=== PATIENT | male | born 1955 | race Two or more races ===

== ENCOUNTER → 2018-10-08 07:18 | Emergency (ER) | payer MEDICAID, OTHER ==
[~2018-10-08] VITALS: Ht 172.7 cm; Wt 68.0 kg
[~2018-10-08 07:18] MED LIST: ACETAMINOPHEN 325 MG TAB PO ONE; MORPHINE SULFATE 4 MG/ML SYR/VIAL IV ONE; ONDANSETRON HCL 4 MG/2 ML VIAL IV ONE; SODIUM CHLORIDE 0.9% 1,000 ML IV ONE; cefTRIAXone 1GM/50ML D5W 50 ML IV ONE; metroNIDAZOLE 500 MG TAB PO ONE
[2018-10-08 08:02] LABS: Basophils # (auto) 0 uL; Basophils % (auto) 0.1 % (0.0-2.0); Eosinophils # (auto) 0 uL; Hematocrit 39.4 % (41.0-53.0); Lymphocytes # (auto) 1.4 uL; Mean Corpuscular Hemoglobin 28.4 pg (28.0-32.0); Mean Corpuscular Hgb Conc. 32.9 g/dL (32.0-36.0); Mean Corpuscular Volume 86.3 fL (80.0-100.0); Monocytes # (auto) 0.8 uL; Monocytes % (auto) 5.6 % (0.0-12.0); Neutrophils # (auto) 12.9 uL; Neutrophils % (auto) 85.3 % (37.0-80.0); Platelet Count (auto) 196 10^3/uL (140-450); Red Blood Cells 4.57 10^6/uL (4.5-5.90); Red Cell Distribution Width 14.3 % (11.8-14.3); White Blood Cell 15.1 10^3/uL (4.4-10.8)
[2018-10-08 08:09] LABS: Albumin 3.7 g/dL (3.4-5.0); Anion Gap 9 (5-15); Aspartate Aminotransferase 16 U/L (15-37); BUN/Creatinine Ratio 16.3; Blood Urea Nitrogen 16 mg/dL (7-18); Calcium 7.8 mg/dL (8.5-10.1); Carbon Dioxide 23 mmol/L (21-32); Chloride 108 mmol/L (98-107); GFR African American 100 mL/min; GFR Non-African American 83 mL/min; Glucose 127 mg/dL (74-106); Potassium 3.6 mmol/L (3.5-5.1); Sodium 140 mmol/L (136-145)
[2018-10-08 08:13] LABS: Alanine Aminotransferase 21 U/L (16-61); Alkaline Phosphatase 52 U/L (45-117); Bilirubin, Total 1.3 mg/dL (0.2-1.0); Total Protein 7.6 g/dL (6.4-8.2)
[2018-10-08 11:43] VITALS: BP 127/87
== END | disposition home or self-care (01) ==
LOC: EDUNIT# 07:07 → EDBD 07:18 → ER 07:18
DX: N39.0 Urinary tract infection, site not specified (principal); D72.829 Elevated white blood cell count, unspecified; R59.1 Generalized enlarged lymph nodes
CPT/HCPCS: 36415; 71046; 74176; 80053; 83605; 84484; 85025; 87040; 93005; 96365; 96375; 99284; J0696; J2270; J2405; J7030

== ENCOUNTER 2021-02-12 23:56 | Emergency (ER) | payer MEDICAID ==
[~2021-02-12] VITALS: Ht 177.8 cm; Wt 102.1 kg
[2021-02-13 01:14] VITALS: BP 153/86
== END 2021-02-13 01:04 | disposition left against medical advice (07) ==
LOC: EDBD 23:56 → ER 23:56 → EDUNIT# 23:56 → ER 02-13 01:04
DX: R07.89 Other chest pain (principal)
CPT/HCPCS: 93005

== ENCOUNTER 2022-07-13 22:02 | Inpatient (IN) | payer MEDICARE, MEDICAID ==
[~2022-07-13] VITALS: Ht 175.3 cm; Wt 66.9 kg
[2022-07-13 22:37] LABS: Basophils # (auto) 0 10 ^3/uL (0-0.2); Basophils % (auto) 0.4 % (0.0-2.0); Eosinophils # (auto) 0.1 10 ^3/uL (0-0.8); Eosinophils % (auto) 1.2 % (0.0-7.0); Hematocrit 42.1 % (41.0-53.0); Hemoglobin 14.7 g/dL (13.5-17.5); Lymphocytes # (auto) 1.5 10 ^3/uL (0.4-5.4); Lymphocytes % (auto) 12.5 % (10.0-50.0); Mean Corpuscular Hemoglobin 28.4 pg (28.0-32.0); Mean Corpuscular Hgb Conc. 34.9 g/dL (32.0-36.0); Mean Corpuscular Volume 81.5 fL (80.0-100.0); Monocytes # (auto) 0.8 10 ^3/uL (0-1.3); Monocytes % (auto) 6.7 % (0.0-12.0); Neutrophils # (auto) 9.4 10 ^3/uL (1.6-8.6); Neutrophils % (auto) 79.2 % (37.0-80.0); Nucleated Red Blood Cells % 0.1 %; Red Blood Cells 5.16 10^6/uL (4.5-5.90); Red Cell Distribution Width 14.5 % (11.8-14.3); White Blood Cell 11.8 10^3/uL (4.4-10.8)
[2022-07-13 22:56] LABS: Albumin 3.6 g/dL (3.4-5.0); BUN/Creatinine Ratio 11.5 (10.0-20.0); Calcium 8.4 mg/dL (8.5-10.1); Magnesium 2.1 mg/dL (1.6-2.6); Potassium 3.9 mmol/L (3.5-5.1)
[2022-07-13 22:58] LABS: Bilirubin, Total 0.7 mg/dL (0.2-1.0); Total Protein 7.7 g/dL (6.4-8.2)
[2022-07-14] MEDS ORDERED: IPRATROPIUM BROM 0.5 MG/2.5ML INH SOL ONE (01:43)
[2022-07-14] MEDS ORDERED: ALBUTEROL SULF 2.5 MG/0.5ML(0.5%) NEB SOLN ONE (01:43)
[2022-07-14] MEDS ORDERED: IPRATROPIUM BROM 0.5 MG/2.5ML INH SOL NEB ONE (01:45)
[2022-07-14] MEDS ORDERED: ALBUTEROL SULF 2.5 MG/0.5ML(0.5%) NEB SOLN NEB ONE (01:45)
[2022-07-14] MEDS ORDERED: ACETAMINOPHEN 325 MG TAB PO PRN (02:45)
[2022-07-14] MEDS ORDERED: TEMAZEPAM 15 MG CAP PO PRN (02:45)
[2022-07-14] MEDS ORDERED: ONDANSETRON HCL 4 MG/2 ML VIAL IV PRN (02:45)
[2022-07-14] MEDS ORDERED: ALBUTEROL SULF 2.5 MG/0.5ML(0.5%) NEB SOLN NEB PRN (02:45)
[2022-07-14] MEDS ORDERED: NITROGLYCERIN 0.4 MG SL TAB SL PRN (02:45)
[2022-07-14] MEDS ORDERED: FUROSEMIDE 20 MG/2 ML VIAL IV ONE (02:45)
[2022-07-14] MEDS ORDERED: MORPHINE SULFATE INJ 2 MG/ml SYRG IV PRN (02:45)
[2022-07-14] MEDS: FUROSEMIDE 20 MG/2 ML VIAL IV SCH ×2 (07:09→18:18)
[2022-07-14 07:20] VITALS: BP 102/61
[2022-07-14] MEDS ORDERED: PANTOPRAZOLE 40 MG TAB PO SCH (10:00)
[2022-07-14] MEDS: GABAPENTIN 300 MG CAP PO SCH ×2 (10:33→22:26)
[2022-07-14] MEDS: ENOXAPARIN SOD 40 MG/0.4 ML SYRINGE SC SCH (10:33)
[2022-07-14 10:43] LABS: Cholesterol 192 mg/dL (< 200); HDL Cholesterol 35 mg/dL (40-59); LDL Cholesterol 143 mg/dL (< 100); Triglycerides 175 mg/dL (< 150)
[2022-07-14] MEDS: METOPROLOL SUCCINATE XL 50 MG TAB PO SCH (10:43)
[2022-07-14] MEDS ORDERED: HYDROcodone-ACET 7.5/325MG TAB PO PRN (13:00)
[2022-07-14] MEDS ORDERED: ATORVASTATIN 20 MG TAB PO SCH (22:00)
[2022-07-15] VITALS (7 sets, daily range): BP systolic 105–153; BP diastolic 71–93
[2022-07-15] MEDS ORDERED: TRAM50TA2 PO (04:51)
[2022-07-15] MEDS ORDERED: ASPI1TAB20 PO (04:51)
[2022-07-15] MEDS ORDERED: SIMV-8 PO (04:51)
[2022-07-15] MEDS ORDERED: MET50T GT (04:51)
[2022-07-15] MEDS ORDERED: GABA300C10 PO (04:51)
[2022-07-15] MEDS: FUROSEMIDE 20 MG/2 ML VIAL IV SCH ×2 (05:56→17:47)
[2022-07-15 06:29] LABS: Basophils # (auto) 0 10 ^3/uL (0-0.2); Basophils % (auto) 0.3 % (0.0-2.0); Eosinophils # (auto) 0.3 10 ^3/uL (0-0.8); Eosinophils % (auto) 2.8 % (0.0-7.0); Hematocrit 41.8 % (41.0-53.0); Hemoglobin 14.5 g/dL (13.5-17.5); Lymphocytes # (auto) 2.6 10 ^3/uL (0.4-5.4); Lymphocytes % (auto) 28.6 % (10.0-50.0); Mean Corpuscular Hgb Conc. 34.6 g/dL (32.0-36.0); Mean Corpuscular Volume 83.9 fL (80.0-100.0); Monocytes # (auto) 1.1 10 ^3/uL (0-1.3); Monocytes % (auto) 11.6 % (0.0-12.0); Neutrophils # (auto) 5.2 10 ^3/uL (1.6-8.6); Neutrophils % (auto) 56.7 % (37.0-80.0); Nucleated Red Blood Cells % 0.4 %; Red Blood Cells 4.98 10^6/uL (4.5-5.90); Red Cell Distribution Width 14.7 % (11.8-14.3); White Blood Cell 9.2 10^3/uL (4.4-10.8)
[2022-07-15 06:49] LABS: Potassium 3.7 mmol/L (3.5-5.1)
[2022-07-15 07:02] LABS: Albumin 3.6 g/dL (3.4-5.0); BUN/Creatinine Ratio 26.4 (10.0-20.0); Calcium 9.1 mg/dL (8.5-10.1)
[2022-07-15 07:14] LABS: Bilirubin, Total 0.8 mg/dL (0.2-1.0); Total Protein 8.2 g/dL (6.4-8.2)
[2022-07-15] MEDS: METOPROLOL SUCCINATE XL 50 MG TAB PO SCH (10:23)
[2022-07-15] MEDS: GABAPENTIN 300 MG CAP PO SCH ×2 (10:23→21:44)
[2022-07-15] MEDS: ENOXAPARIN SOD 40 MG/0.4 ML SYRINGE SC SCH (10:23)
[2022-07-15] MEDS: ATORVASTATIN 20 MG TAB PO SCH ×2 (10:30→21:45)
[2022-07-15] MEDS ORDERED: LACTULOSE 20Gm/30ML SOLN PO ONE (18:00)
[2022-07-16 05:00] VITALS: BP 121/68
[2022-07-16] MEDS: FUROSEMIDE 20 MG/2 ML VIAL IV SCH ×2 (05:53→18:30)
[2022-07-16 08:15] VITALS: BP 95/62
[2022-07-16] MEDS: GABAPENTIN 300 MG CAP PO SCH ×2 (10:23→21:57)
[2022-07-16] MEDS: ENOXAPARIN SOD 40 MG/0.4 ML SYRINGE SC SCH (10:23)
[2022-07-16] MEDS: METOPROLOL SUCCINATE XL 50 MG TAB PO SCH (10:28)
[2022-07-16 12:15] VITALS: BP 121/86
[2022-07-16 16:25] VITALS: BP 114/80
[2022-07-16] MEDS: ATORVASTATIN 20 MG TAB PO SCH (21:57)
[2022-07-16 22:00] VITALS: BP 116/84
[2022-07-17 03:42] VITALS: BP 116/84
[2022-07-17 05:00] VITALS: BP 123/80
[2022-07-17] MEDS: FUROSEMIDE 20 MG/2 ML VIAL IV SCH (05:52)
[2022-07-17 08:20] VITALS: BP 121/89
[2022-07-17 09:57] VITALS: BP 113/78
== END 2022-07-17 11:00 | disposition home or self-care (01) | DRG 197 ==
LOC: EDBD 22:02 → ER 22:02 → TELE 07-14 02:31 → TELE-WESTW 07-15 02:32
PROVIDERS: ADMIT Nurse Practitioner; ATTEND Family Medicine
DX: I71.21 Aneurysm of the ascending aorta, without rupture (principal); I50.31 Acute diastolic (congestive) heart failure; K44.9 Diaphragmatic hernia without obstruction or gangrene; I11.0 Hypertensive heart disease with heart failure; E66.9 Obesity, unspecified; Z20.822 Contact with and (suspected) exposure to COVID-19; E78.5 Hyperlipidemia, unspecified; I25.2 Old myocardial infarction; Z88.6 Allergy status to analgesic agent; Z87.442 Personal history of urinary calculi; Z82.49 Family history of ischemic heart disease and other diseases of the circulatory system; Z68.21 Body mass index [BMI] 21.0-21.9, adult; R07.89 Other chest pain
CPT/HCPCS: 36415; 71250; 80053; 80061; 83036; 83735; 83880; 84443; 84484; 85025; 85379; 87426; 87804; 93005; 93306; 94640; G0378

== ENCOUNTER 2023-09-03 09:12 | Emergency (ER) | payer MEDICARE, MEDICAID ==
[~2023-09-03] VITALS: Ht 177.8 cm; Wt 91.0 kg
[~2023-09-03 09:12] MED LIST changes: -ACETAMINOPHEN 325 MG TAB PO ONE; +ASPI1TAB20 PO; +GABA-1250 PO; +MET50T GT; -MORPHINE SULFATE 4 MG/ML SYR/VIAL IV ONE; -ONDANSETRON HCL 4 MG/2 ML VIAL IV ONE; +SIMV20TA20 PO; -SODIUM CHLORIDE 0.9% 1,000 ML IV ONE; +TRAM50TA2 PO; -cefTRIAXone 1GM/50ML D5W 50 ML IV ONE; -metroNIDAZOLE 500 MG TAB PO ONE
[2023-09-03 09:16] VITALS: TEMP 97.8
[2023-09-03 09:20] VITALS: BP 173/99; PULSE 66
[2023-09-03 09:24] VITALS: RESP 18; O2SAT 94
== END 2023-09-03 10:21 | disposition home or self-care (01) ==
LOC: ER 09:12 → EDBD 09:12 → ER 10:21
DX: R07.81 Pleurodynia (principal); M79.18 Myalgia, other site; E78.5 Hyperlipidemia, unspecified; I10 Essential (primary) hypertension; Z87.442 Personal history of urinary calculi; Z88.6 Allergy status to analgesic agent; W18.09XA Striking against other object with subsequent fall, initial encounter; Y93.89 Activity, other specified; Y92.89 Other specified places as the place of occurrence of the external cause; Y99.8 Other external cause status
CPT/HCPCS: 71101

== ENCOUNTER 2023-10-22 23:27 | Inpatient (IN) | payer MEDICARE, MEDICAID ==
[~2023-10-22] VITALS: Ht 172.7 cm; Wt 75.0 kg
[~2023-10-22 23:27] MED LIST changes: +LIDO1PAD55 EX; -MET50T GT; +MET50T PO
[2023-10-22 23:40] VITALS: RESP 18; O2SAT 94
[2023-10-23] VITALS (7 sets, daily range): BP systolic 137–142; BP diastolic 83–100; PULSE 87–102; RESP 17–19; TEMP 98.6–101.5; O2SAT 92–97
[2023-10-23] MEDS: ALBUTEROL SULF 2.5 MG/0.5ML(0.5%) NEB SOLN NEB ONE (00:03)
[2023-10-23] MEDS: SODIUM CHLORIDE 0.9% 1,000 ML IV ONE (00:03)
[2023-10-23] MEDS: ACETAMINOPHEN 325 MG TAB PO ONE (00:04)
[2023-10-23 00:16] LABS: Basophils # (auto) 0 10 ^3/uL (0-0.2); Basophils % (auto) 0.2 % (0.0-2.0); Eosinophils # (auto) 0 10 ^3/uL (0-0.8); Eosinophils % (auto) 0.4 % (0.0-7.0); Hematocrit 39.4 % (41.0-53.0); Hemoglobin 13.6 g/dL (13.5-17.5); Lymphocytes # (auto) 1.7 10 ^3/uL (0.4-5.4); Lymphocytes % (auto) 17.8 % (10.0-50.0); Mean Corpuscular Hemoglobin 29.7 pg (28.0-32.0); Mean Corpuscular Hgb Conc. 34.5 g/dL (32.0-36.0); Monocytes # (auto) 0.8 10 ^3/uL (0-1.3); Monocytes % (auto) 8.4 % (0.0-12.0); Neutrophils # (auto) 7.1 10 ^3/uL (1.6-8.6); Neutrophils % (auto) 73.2 % (37.0-80.0); Nucleated Red Blood Cells % 0.1 %; Red Blood Cells 4.58 10^6/uL (4.5-5.90); Red Cell Distribution Width 14.5 % (11.8-14.3); White Blood Cell 9.7 10^3/uL (4.4-10.8)
[2023-10-23 00:20] LABS: Chloride 106 mmol/L (98-107); Potassium 3.6 mmol/L (3.5-5.1); Sodium 137 mmol/L (136-145)
[2023-10-23 00:21] LABS: Anion Gap 5 (5-15); Calcium 8.9 mg/dL (8.7-10.4); Carbon Dioxide 26 mmol/L (20-30)
[2023-10-23 00:26] LABS: BUN/Creatinine Ratio 14.3 (10.0-20.0); Blood Urea Nitrogen 12 mg/dL (9-23); Glucose 131 mg/dL (74-106)
[2023-10-23] MEDS: CEFEPIME 2GM/50ML NS 50 ML IV ONE (04:00)
[2023-10-23] MEDS: VANCOMYCIN 1GM/200ML 200 ML IV ONE (04:02)
[2023-10-23] MEDS: AZITHROMYCIN 250 MG TAB PO ONE (04:02)
[2023-10-23] MEDS: ACETAMINOPHEN 500 MG TAB PO ONE (08:51)
[2023-10-23] MEDS ORDERED: DOCUSATE SOD 100 MG CAP PO PRN (10:30)
[2023-10-23] MEDS ORDERED: AZITHROMYCIN 500MG/ 250ML 250 ML IV ONE (10:30)
[2023-10-23] MEDS ORDERED: ONDANSETRON HCL 4 MG/2 ML VIAL IV PRN (10:30)
[2023-10-23] MEDS ORDERED: NITROGLYCERIN 0.4 MG SL TAB SL PRN (10:30)
[2023-10-23] MEDS ORDERED: MORPHINE SULFATE INJ 2 MG/ml SYRG IV PRN ×2 (10:30)
[2023-10-23] MEDS: cefTRIAXone 1GM/50ML D5W 50 ML IV ONE (11:10)
[2023-10-23] MEDS: SODIUM CHLORIDE 0.9% 1,000 ML IV SCH (11:10)
[2023-10-23 11:31] LABS: INR 1.14 (0.9-1.15)
[2023-10-23 12:11] LABS: COVID19 ANTIGEN SOFIA FIA POSITIVE (NEGATIVE)
[2023-10-23] MEDS ORDERED: REMDESIVIR PER PHARMACY 0 ML IV SCH (12:30)
[2023-10-23] MEDS ORDERED: ALBUTEROL SULF HFA 90MCG INH 200DOSE IN PRN (12:30)
[2023-10-23 13:17] LABS: Thyroid Stimulating Hormone 0.76 uIU/mL (0.55-4.78)
[2023-10-23 13:22] LABS: CRP High Sensitivity 9.52 mg/dL (<1.0)
[2023-10-23 14:26] LABS: Albumin 4.3 g/dL (3.2-4.8); Alkaline Phosphatase 43 U/L (46-116); Anion Gap 14 (5-15); Aspartate Aminotransferase 9 U/L (13-40); BUN/Creatinine Ratio 12.7 (10.0-20.0); Blood Urea Nitrogen 9 mg/dL (9-23); Carbon Dioxide 17 mmol/L (20-30); Chloride 107 mmol/L (98-107); Glucose 97 mg/dL (74-106); Potassium 3.7 mmol/L (3.5-5.1); Sodium 138 mmol/L (136-145); Total Protein 7.1 g/dL (5.7-8.2)
[2023-10-23 15:08] LABS: Alanine Aminotransferase < 9 U/L (7-40)
[2023-10-23 16:00] LABS: Urine Bacteria None Seen /hpf (None Seen)
[2023-10-23 16:29] LABS: Urine Blood 2+ /uL (Negative); Urine Clarity Clear (Clear); Urine Color Yellow (Yellow); Urine Mucus FEW (None Seen); Urine Protein, UAD TRACE (Negative); Urine Specific Gravity 1.022 (1.001-1.035); Urine Urobilinogen 8 mg/dL (Negative); Urine WBC <1 /hpf (0 - 3); Urine pH 6.5 (5.0-9.0)
[2023-10-23] MEDS ORDERED: [UNRECOGNIZED DRUG - CODE] PO (16:43)
[2023-10-23] MEDS ORDERED: OMEP20TA PO (16:44)
[2023-10-23] MEDS ORDERED: BUDE1AER6 INH (16:44)
[2023-10-23] MEDS: REMDESIVIR 200 MG in NS 210ml LOADING DOSE ADULT IV ONE (17:33)
[2023-10-23] MEDS: METOPROLOL TARTRATE 50 MG TAB PO SCH (21:39)
[2023-10-23] MEDS: GABAPENTIN 300 MG CAP PO SCH (21:40)
[2023-10-23] MEDS: ACETAMINOPHEN 500 MG TAB PO PRN (21:40)
[2023-10-23] MEDS: ENOXAPARIN SOD 80 MG/0.8ML SYRINGE SC SCH (21:40)
[2023-10-24] VITALS (9 sets, daily range): BP systolic 119–170; BP diastolic 76–102; PULSE 67–98; RESP 16–19; TEMP 97.4–98.4; O2SAT 94–98
[2023-10-24 07:19] LABS: Basophils # (auto) 0 10 ^3/uL (0-0.2); Basophils % (auto) 0.3 % (0.0-2.0); Eosinophils # (auto) 0.1 10 ^3/uL (0-0.8); Eosinophils % (auto) 1.4 % (0.0-7.0); Hematocrit 40.3 % (41.0-53.0); Hemoglobin 13.8 g/dL (13.5-17.5); Lymphocytes # (auto) 1.5 10 ^3/uL (0.4-5.4); Lymphocytes % (auto) 21.2 % (10.0-50.0); Mean Corpuscular Hgb Conc. 34.2 g/dL (32.0-36.0); Mean Corpuscular Volume 87.7 fL (80.0-100.0); Monocytes # (auto) 0.9 10 ^3/uL (0-1.3); Monocytes % (auto) 13.2 % (0.0-12.0); Neutrophils # (auto) 4.5 10 ^3/uL (1.6-8.6); Neutrophils % (auto) 63.9 % (37.0-80.0); Nucleated Red Blood Cells % 0.1 %; Red Blood Cells 4.59 10^6/uL (4.5-5.90); Red Cell Distribution Width 14.3 % (11.8-14.3); White Blood Cell 7.1 10^3/uL (4.4-10.8)
[2023-10-24 07:26] LABS: Alkaline Phosphatase 43 U/L (46-116); Anion Gap 13 (5-15); Aspartate Aminotransferase 8 U/L (13-40); BUN/Creatinine Ratio 10.8 (10.0-20.0); Blood Urea Nitrogen 7 mg/dL (9-23); Calcium 9.2 mg/dL (8.7-10.4); Carbon Dioxide 17 mmol/L (20-30); Chloride 105 mmol/L (98-107); Glucose 74 mg/dL (74-106); Potassium 3.7 mmol/L (3.5-5.1); Sodium 135 mmol/L (136-145)
[2023-10-24 07:27] LABS: Alanine Aminotransferase < 9 U/L (7-40); Albumin 4.3 g/dL (3.2-4.8); Bilirubin, Total 0.9 mg/dL (0.2-1.0); Total Protein 7.5 g/dL (5.7-8.2)
[2023-10-24] MEDS: IOHEXOL 350 MG/ML 100ML IJ ONE (07:48)
[2023-10-24] MEDS ORDERED: ENOXAPARIN SOD 40 MG/0.4 ML SYRINGE SC SCH (10:00)
[2023-10-24] MEDS: ZINC SULFATE 220mg CAP or TAB PO SCH (11:57)
[2023-10-24] MEDS: ASPirin-EC 81 mg tab PO SCH (11:58)
[2023-10-24] MEDS: hydrALAZINE HCL 20 MG/ML VL IV PRN (11:59)
[2023-10-24] MEDS: DexAMETHasone SOD PHOS 10MG/1ML VIAL INJ IV SCH (11:59)
[2023-10-24] MEDS: AZITHROMYCIN 500MG/ 250ML 250 ML IV SCH (12:00)
[2023-10-24] MEDS: cefTRIAXone 1GM/50ML D5W 50 ML IV SCH (12:00)
[2023-10-24] MEDS ORDERED: PARO10TA93 PO (13:34)
[2023-10-24] MEDS ORDERED: GABA-339 PO (13:34)
[2023-10-24] MEDS ORDERED: OMEP1CAP70 PO (13:34)
[2023-10-24] MEDS: REMDESIVIR 100mg 100 MG in SODIUM CHL 0.9% 230 ML IV SCH (15:00)
[2023-10-24] MEDS: PANTOPRAZOLE 40 MG/10 ML VIAL INJ IV ONE (15:44)
[2023-10-24] MEDS: ASCORBIC ACID 500 MG TAB PO ONE (15:44)
[2023-10-24] MEDS: ERGOCALCIFEROL 50,000 UNIT(1.25MG) CAP PO SCH (15:44)
[2023-10-24] MEDS: ASCORBIC ACID 500 MG TAB PO SCH (21:17)
[2023-10-25] VITALS (10 sets, daily range): BP systolic 115–140; BP diastolic 73–82; PULSE 65–72; RESP 17–20; TEMP 97.3–98.8; O2SAT 93–98
[2023-10-25 06:41] LABS: Basophils # (auto) 0 10 ^3/uL (0-0.2); Basophils % (auto) 0.1 % (0.0-2.0); Eosinophils # (auto) 0 10 ^3/uL (0-0.8); Hemoglobin 14.2 g/dL (13.5-17.5); Lymphocytes % (auto) 21.4 % (10.0-50.0); Mean Corpuscular Hemoglobin 29.2 pg (28.0-32.0); Mean Corpuscular Hgb Conc. 33.7 g/dL (32.0-36.0); Mean Corpuscular Volume 86.6 fL (80.0-100.0); Monocytes # (auto) 0.4 10 ^3/uL (0-1.3); Monocytes % (auto) 8.2 % (0.0-12.0); Neutrophils # (auto) 3.3 10 ^3/uL (1.6-8.6); Neutrophils % (auto) 70.3 % (37.0-80.0); Nucleated Red Blood Cells % 0.3 %; Red Blood Cells 4.85 10^6/uL (4.5-5.90); Red Cell Distribution Width 14.5 % (11.8-14.3); White Blood Cell 4.7 10^3/uL (4.4-10.8)
[2023-10-25 06:44] LABS: Albumin 4.1 g/dL (3.2-4.8); Alkaline Phosphatase 43 U/L (46-116); Anion Gap 8 (5-15); BUN/Creatinine Ratio 28.6 (10.0-20.0); Blood Urea Nitrogen 20 mg/dL (9-23); Calcium 9.2 mg/dL (8.7-10.4); Carbon Dioxide 23 mmol/L (20-30); Chloride 106 mmol/L (98-107); Glucose 126 mg/dL (74-106); Potassium 3.6 mmol/L (3.5-5.1); Sodium 137 mmol/L (136-145)
[2023-10-25 06:45] LABS: Bilirubin, Total 0.6 mg/dL (0.2-1.0); Total Protein 7.2 g/dL (5.7-8.2)
[2023-10-25 06:46] LABS: Alanine Aminotransferase < 9 U/L (7-40); Aspartate Aminotransferase < 8 U/L (13-40)
[2023-10-25] MEDS: PANTOPRAZOLE 40 MG/10 ML VIAL INJ IV SCH (10:09)
[2023-10-25] MEDS: ATORVASTATIN 20 MG TAB PO SCH (10:15)
[2023-10-25] MEDS: guaiFENesin-DM 100/10mg/5ml SYR PO PRN (11:39)
[2023-10-25] MEDS: ENOXAPARIN SOD 40 MG/0.4 ML SYRINGE SC SCH (21:28)
[2023-10-26] VITALS (10 sets, daily range): BP systolic 108–142; BP diastolic 3–91; PULSE 62–70; RESP 18–19; TEMP 97.9–98.5; O2SAT 90–96
[2023-10-26 06:19] LABS: Albumin 3.9 g/dL (3.2-4.8); Alkaline Phosphatase 44 U/L (46-116); Anion Gap 8 (5-15); BUN/Creatinine Ratio 24.6 (10.0-20.0); Bilirubin, Total 0.4 mg/dL (0.2-1.0); Blood Urea Nitrogen 15 mg/dL (9-23); Carbon Dioxide 22 mmol/L (20-30); Chloride 107 mmol/L (98-107); Glucose 80 mg/dL (74-106); Potassium 3.7 mmol/L (3.5-5.1); Sodium 137 mmol/L (136-145); Total Protein 6.6 g/dL (5.7-8.2)
[2023-10-26 06:23] LABS: Alanine Aminotransferase < 9 U/L (7-40); Aspartate Aminotransferase < 8 U/L (13-40)
[2023-10-27] VITALS (9 sets, daily range): BP systolic 122–151; BP diastolic 59–89; PULSE 58–86; RESP 14–19; TEMP 36.3; O2SAT 92–98
[2023-10-27 05:39] LABS: Basophils # (auto) 0 10 ^3/uL (0-0.2); Eosinophils # (auto) 0 10 ^3/uL (0-0.8); Hematocrit 38.9 % (41.0-53.0); Hemoglobin 13.3 g/dL (13.5-17.5); Lymphocytes # (auto) 1.9 10 ^3/uL (0.4-5.4); Lymphocytes % (auto) 20.5 % (10.0-50.0); Mean Corpuscular Hemoglobin 28.9 pg (28.0-32.0); Mean Corpuscular Hgb Conc. 34.1 g/dL (32.0-36.0); Mean Corpuscular Volume 84.7 fL (80.0-100.0); Monocytes # (auto) 0.7 10 ^3/uL (0-1.3); Monocytes % (auto) 7.6 % (0.0-12.0); Neutrophils # (auto) 6.8 10 ^3/uL (1.6-8.6); Neutrophils % (auto) 71.9 % (37.0-80.0); Nucleated Red Blood Cells % 0.1 %; Red Blood Cells 4.59 10^6/uL (4.5-5.90); Red Cell Distribution Width 14.2 % (11.8-14.3); White Blood Cell 9.4 10^3/uL (4.4-10.8)
[2023-10-27 06:01] LABS: Alanine Aminotransferase 13 U/L (7-40); Alkaline Phosphatase 48 U/L (46-116); Anion Gap 10 (5-15); BUN/Creatinine Ratio 32.3 (10.0-20.0); Blood Urea Nitrogen 20 mg/dL (9-23); Carbon Dioxide 24 mmol/L (20-30); Chloride 104 mmol/L (98-107); Glucose 81 mg/dL (74-106); Potassium 3.7 mmol/L (3.5-5.1); Sodium 138 mmol/L (136-145)
[2023-10-27 06:02] LABS: Aspartate Aminotransferase 10 U/L (13-40); Bilirubin, Total 0.4 mg/dL (0.2-1.0); Total Protein 6.7 g/dL (5.7-8.2)
[2023-10-27] MEDS ORDERED: SORE THROAT SPRAY 6OZ BOTTLE MT PRN (11:00)
[2023-10-27] MEDS: SORE THROAT SPRAY 6OZ BOTTLE MT ONE (15:36)
== END 2023-10-27 18:30 | disposition home or self-care (01) | DRG 137 ==
LOC: EDBD 23:27 → ER 23:27 → OVERFLOW 10-23 10:36 → CENTRAL 10-23 16:12 → WEST WING 10-24 23:43
PROVIDERS: ADMIT Internal Medicine; ATTEND Emergency Medicine
PROC: XW033E5 Introduction of Remdesivir Anti-infective into Peripheral Vein, Percutaneous Approach, New Technology Group 5 (ICD-10-PCS; principal; 2023-10-23)
DX: U07.1 COVID-19 (principal); J96.01 Acute respiratory failure with hypoxia; J12.82 Pneumonia due to coronavirus disease 2019; I11.0 Hypertensive heart disease with heart failure; I50.32 Chronic diastolic (congestive) heart failure; J15.9 Unspecified bacterial pneumonia; M62.838 Other muscle spasm; E55.9 Vitamin D deficiency, unspecified; E78.5 Hyperlipidemia, unspecified; Z88.1 Allergy status to other antibiotic agents; Z79.899 Other long term (current) drug therapy; Z90.49 Acquired absence of other specified parts of digestive tract; Z88.6 Allergy status to analgesic agent; I25.2 Old myocardial infarction
CPT/HCPCS: 36415; 71045; 71275; 80048; 80053; 81001; 82270; 82306; 82728; 83605; 83615; 83735; 83880; 84443; 84484; 85025; 85379; 85610; 86141; 87426; 93005; 94640; 96365; 96366; 96367; 96368; G0378; J0692; J1100; J2470

== ENCOUNTER 2024-02-18 15:45 | Inpatient (IN) | payer MEDICARE, MEDICAID ==
[~2024-02-18] VITALS: Ht 175.3 cm; Wt 93.7 kg
[~2024-02-18 15:45] MED LIST changes: +BUDE1AER6 INH; -GABA-1250 PO; +GABA-339 PO; +OMEP1CAP70 PO; +PARO10TA93 PO
--- NOTE | 2024-02-18 15:51 | ECG ---
[facility] Test Date: 2024-02-18 Test Time: 15:49:58 Pat Name: YVON ESTRADA Department: ED Room: [facility] Gender: M Parking Patroller: MR DOBSONB: 1955 Requested By: EMERALD GOLD Order Number: [id number] Reading MD: Braxton Hickey Measurements Intervals [place] Rate: 57 P: -10 NE: 216 QRS: -16 QRSD: 99 T: 18 QT: 441 QTc: 430 Interpretive Statements Sinus rhythm Borderline prolonged NE interval Borderline left axis deviation Low voltage, precordial leads RSR' in V1 or V2, right VCD or RVH Minimal ST elevation, anterior leads Electronically Signed On 02-22-2024 11:14:45 PST by Braxton Hickey Please click the below link to view image of tracing.
--- NOTE | 2024-02-18 15:51 | ED.PDOC ---
History of Present Illness HPI Comments This is a 68-year-old male who comes in with chief complaint of elevated blood pressure as well as some dizziness and nausea. 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 At that time the patient's systolic was 190. The patient was now complaining of some back pain as well. The patient took the medications today for his blood pressure but does not remember what they are. He is still complaining of some dizziness as well as nausea and states that his back pain has worsened. The paramedics took his blood pressure and is systolic at that time was 176. Chief Complaint: High Blood Pressure Time Seen by MD: 15:46 Primary Care Provider: PT DOESNT KNOW Reviewed Notes: Nurses Notes, Fireworks Inspector Notes, Medications, Allergies (Allergies to ibuprofen) Allergies: Coded Allergies: Ibuprofen (Verified Allergy, Mild, 03/28/10) Home Meds Reported Medications Lidocaine (Lidocaine) 5 % Pad, 1 PATCH EX DAILY Apply 1 patch every rafael 12 hours on 12 hours off. 10/24/23 Omeprazole (Omeprazole Dr) 20 Mg Cap, 2 CAP PO DAILY 10/24/23 Paroxetine Hydrochloride (Paroxetine Hydrochloride) 10 Mg Tab, 1 TAB PO DAILY 10/24/23 Gabapentin (Gabapentin) 600 Mg Tab, 2 TAB PO BID Take 2 tablets by mouth every morning, and 2 tablets by mouth every night at bedtime. 10/24/23 Virvxrvqwf-Adzcjwpdyeltsb-Amwc (Breztri Aerosphere 160-9-4.8 Mcg/Act) 1 Aer Aer, 2 PUFF INH BID 10/23/23 Aspirin (Aspir-81) 81 Mg Tab, 1 TAB PO DAILY 07/15/22 Simvastatin (Simvastatin) 20 Mg Tab, 1 TAB PO DAILY 07/15/22 Metoprolol Tartrate (LOPRESSOR TABLET) 50 Mg Tb, 1 TAB PO BID 07/15/22 Tramadol Hcl (Tramadol Hcl) 50 Mg Tab, 1 TAB PO QID PRN 07/15/22 Information Source: Patient, Emergency Med Personnel Mode of Arrival: EMS Severity: Moderate Timing: Minutes Duration: Since onset Prehospital treatment: Accucheck (117), Blueprinter, IVF Location: Upper back pain Associated signs and symptoms Associated dizziness and nausea Past Medical History PAST MEDICAL HISTORY: CHF, CVA, High Lipids, HTN, Kidney Stones, UT, UTI'S Surgical History: Denies all surgeries Family History Family History: Family hx of Cancer Social History Smoker: Non-Smoker Alcohol: Occasionally Drugs: Denies Drug Use Lives In: Home Constitutional: denies: chills, diaphoresis, fatigue, fever, malaise, sweats, weakness, others EENTM: denies: blurred vision, double vision, ear bleeding, ear discharge, ear drainage, ear pain, ear ringing, eye pain, eye redness, hearing loss, mouth pain, mouth swelling, nasal discharge, nose bleeding, nose congestion, nose pain, photophobia, tearing, throat pain, throat swelling, voice changes, others Respiratory: denies: cough, hemoptysis, orthopnea, SOB at rest, shortness of breath, SOB with excertion, stridor, wheezing, others Cardiovascular: denies: chest pain, dizzy spells, diaphoresis, Dyspnea on exertion, edema, irregular heart beat, left arm pain, lightheadedness, palpitations, PND, syncope, others Gastrointestinal: reports: nausea; denies: abdomen distended, abdominal pain, blood streaked bowels, constipated, diarrhea, dysphagia, difficulty swallowing, hematemesis, melena, poor appetite, poor fluid intake, rectal bleeding, rectal pain, vomiting, others Genitourinary: denies: burning, dysuria, flank pain, frequency, hematuria, incontinence, penile discharge, penile sore, pain, testicle pain, testicle swelling, urgency, others Neurological: reports: dizziness; denies: fainting, headache, left sided numbness, left sided weakness, numbness, paresthesia, pre-existing deficit, right sided numbness, right sided weakness, seizure, speech problems, tingling, tremors, weakness, others Musculoskeletal: reports: back pain; denies: gout, joint pain, joint swelling, muscle pain, muscle stiffness, neck pain, others Integumetry: denies: bruises, change in color, change in hair/nails, dryness, laceration, lesions, lumps, rash, wounds, others Allergic/Immunocompromised: denies: Difficulty Healing, Frequent Infections, Hives, Itching, others Hematologic/Lymphatic: denies: anemia, blood clots, easy bleeding, easy bruising, swollen glands, others Endocrine: denies: excessive hunger, excessive sweating, excessive thirst, excessive urination, flushing, intolerance to cold, intolerance to heat, unexplained weight gain, unexplained weight loss, others Psychiatric: denies: anxiety, bipolar disorder, depression, hopeless, panic disorder, schizophrenia, sleepless, suicidal, others Physical Exam General Appearance: Moderate Distress HEENT: Normal ENT Inspection, Pharynx Normal, TMs Normal Neck: Full Range of Motion, Non-Tender, Normal, Normal Inspection Respiratory: Chest Non-Tender, Lungs Clear, No Accessory Muscle Use, No Respiratory Distress, Normal Breath Sounds Cardiovascular: No Edema, No JVD, No Murmur, No Gallop, Normal Peripheral Pulses, Regular Rate/Rhythm Breast Exam: Deferred Gastrointestinal: No Organomegaly, Non Tender, No Pulsatile Mass, Normal Bowel Sounds, Soft Genitalia: Deferred Pelvic: Deferred Rectal: Deferred Extremities: No calf tenderness, Normal capillary refill, No pedal edema Musculoskeletal : Apperance: Normal Neurologic: Alert, clinic receptionist II-XII nml as Tested, Motor Weakness, Normal Affect, Normal Mood, No Sensory Deficits Cerebellar Function: Normal Reflexes: Normal Skin: Dry, Normal Color, Warm Lymphatic: No Adenopathy Was a procedure done? Was a procedure done?: No EKG EKG : Pulse Rate (adult): 57 [place]: LAD Cardiac Rhythm: SB ST: Nonsp Differential Dx Considerations may include: Generalized weakness, ACS, UT, hypertensive crisis, accelerated hypertension X-Ray, Labs, Meds, VS Vital Signs Date Time Temp Pulse Resp B/P (MAP) Pulse Ox O2 Delivery O2 Flow Rate FiO2 02/18/24 15:58 57 02/18/24 15:53 98.7 62 16 175/102 (126) 98 02/18/24 15:49 57 Lab Test 02/18/24 16:02 02/18/24 15:58 Range/Units Urine Color Light-yellow Yellow Urine Clarity Clear Clear Urine pH 5.5 5.0-9.0 Urine Specific [place] 1.012 1.001-1.035 Urine Protein Negative Negative Urine Ketones Negative Negative Urine Blood Negative Negative /uL Urine Nitrite Negative Negative Urine Bilirubin Negative Negative Urine Urobilinogen Normal Negative mg/dL Urine Leukocyte Esterase Trace Negative /uL Urine RBC 1 0 - 3 /hpf Urine WBC 1 0 - 3 /hpf Urine Squamous Epithelial Cells None seen <5 /hpf Urine Bacteria None seen None Seen /hpf Urine Glucose Normal Normal mg/dL White Blood Count 6.5 4.4-10.8 10^3/uL Red Blood Count 5.08 4.5-5.90 10^6/uL Hemoglobin 14.5 13.5-17.5 g/dL Hematocrit 43.3 41.0-53.0 % Mean Corpuscular Volume 85.3 80.0-100.0 fL Mean Corpuscular Hemoglobin 28.5 28.0-32.0 pg Mean Corpuscular Hemoglobin Concent 33.5 32.0-36.0 g/dL Red Cell Distribution Width 14.1 11.8-14.3 % Platelet Count 255 140-450 10^3/uL Mean Platelet Volume 8.2 6.9-10.8 fL Neutrophils (%) (Auto) 49.1 37.0-80.0 % Lymphocytes (%) (Auto) 38.0 10.0-50.0 % Monocytes (%) (Auto) 8.4 0.0-12.0 % Eosinophils (%) (Auto) 4.1 0.0-7.0 % Basophils (%) (Auto) 0.4 0.0-2.0 % Neutrophils # (Auto) 3.2 1.6-8.6 10 ^3/uL Lymphocytes # (Auto) 2.5 0.4-5.4 10 ^3/uL Monocytes # (Auto) 0.5 0-1.3 10 ^3/uL Eosinophils # (Auto) 0.3 0-0.8 10 ^3/uL Basophils # (Auto) 0 0-0.2 10 ^3/uL Nucleated Red Blood Cells 0.3 % Sodium Level 138 136-145 mmol/L Potassium Level 4.2 3.5-5.1 mmol/L Chloride Level 105 98-107 mmol/L Carbon Dioxide Level 26 20-31 mmol/L Anion Gap 7 5-15 Blood Urea Nitrogen 12 9-23 mg/dL Creatinine 0.75 0.700-1.30 mg/dL Glomerular Filtration Rate Calc 100 >90 mL/min BUN/Creatinine Ratio 16.0 10.0-20.0 Serum Glucose 97 74-106 mg/dL Calcium Level 9.2 8.7-10.4 mg/dL Troponin I High Sensitivity < 3 L </=54 ng/L PROCEDURE(s): CXRP - CHEST PORTABLE IMPRESSION: 1. Cardiomegaly and pulmonary venous congestion. The patient was given Lasix 40 mg IV push after the chest x-ray findings The CBC and chemistry panel are within normal limits The troponin level is negative The urine test is negative At this time, the patient is being admitted to the hospitalist. Over the last IV Hep-Lock was established Images Reviewed?: Images reviewed and evaluated by me Time of 1ST Reevaluation: 15:57 Reevaluation 1ST: Unchanged Patient Education/Counseling: Diagnosis, Treatment, Prognosis Family Education/Counseling: No Family Present Departure 1 Departure Time of Disposition: 17:02 Impression: Primary Impression: Accelerated hypertension Additional Impression: Acute on chronic diastolic heart failure Disposition: 09 ADMITTED INPATIENT Admit to: Tele Condition: Fair Critical Care Note Critical Care Time?: Yes (35 min-critical care time only) Stability Stability form required: Yes Unstable for transfer: Telemetry monitoring (Telemetry monitoring required), ED Physician Assesment (Clinical assesment) Heart Score Heart Score: Heart Score Response (Comments) Value History Moderate Suspicious 1 EKG Normal 0 Age >65 2 Risk Factors >3 or Hx ASHD 2 Troponin N/A 0 Total 5 I personally scribed for EMERALD GOLD MD ([email or web address]) on 02/18/24 at 16:28. Electronically submitted by Sravanthi Arredondo ([email or web address]). EMERALD GOLD MD Feb 18, 2024 15:51
[2024-02-18 16:05] LABS: Basophils # (auto) 0 10 ^3/uL (0-0.2); Basophils % (auto) 0.4 % (0.0-2.0); Eosinophils # (auto) 0.3 10 ^3/uL (0-0.8); Eosinophils % (auto) 4.1 % (0.0-7.0); Hematocrit 43.3 % (41.0-53.0); Hemoglobin 14.5 g/dL (13.5-17.5); Lymphocytes # (auto) 2.5 10 ^3/uL (0.4-5.4); Mean Corpuscular Hemoglobin 28.5 pg (28.0-32.0); Mean Corpuscular Hgb Conc. 33.5 g/dL (32.0-36.0); Mean Corpuscular Volume 85.3 fL (80.0-100.0); Monocytes # (auto) 0.5 10 ^3/uL (0-1.3); Monocytes % (auto) 8.4 % (0.0-12.0); Neutrophils # (auto) 3.2 10 ^3/uL (1.6-8.6); Neutrophils % (auto) 49.1 % (37.0-80.0); Nucleated Red Blood Cells % 0.3 %; Platelet Count (auto) 255 10^3/uL (140-450); Red Blood Cells 5.08 10^6/uL (4.5-5.90); Red Cell Distribution Width 14.1 % (11.8-14.3); White Blood Cell 6.5 10^3/uL (4.4-10.8)
[2024-02-18 16:19] LABS: Chloride 105 mmol/L (98-107); Potassium 4.2 mmol/L (3.5-5.1); Sodium 138 mmol/L (136-145)
[2024-02-18 16:20] LABS: Anion Gap 7 (5-15); Carbon Dioxide 26 mmol/L (20-31)
[2024-02-18 16:21] LABS: Calcium 9.2 mg/dL (8.7-10.4)
[2024-02-18 16:25] LABS: Blood Urea Nitrogen 12 mg/dL (9-23); Glucose 97 mg/dL (74-106)
--- NOTE | 2024-02-18 16:25 | DVH ---
Procedure: XY CHEST PORTABLE 02/18/2024 04:02 PM Indication: back pain. Comparison: XY CHEST PORTABLE on DOS: 10/23/23, XY CHEST XRAY 1 VIEW on DOS: 09/03/23, XY CHEST PORTABLE on DOS: 07/13/22 TECHNIQUE: XY CHEST PORTABLE FINDINGS: Medical devices: None. Cardiomediastinal: The heart is mildly enlarged. Pulmonary vasculature is prominent. Atherosclerotic calcification of the aortic arch noted. Lungs: Small right basilar pulmonary opacity likely subsegmental atelectasis. The costophrenic angles are clear. No pneumothorax. Bones/soft tissues: No acute abnormality is noted. IMPRESSION: 1. Cardiomegaly and pulmonary venous congestion.
[2024-02-18 16:42] LABS: Urine Bacteria None Seen /hpf (None Seen)
[2024-02-18 16:50] LABS: Urine Blood Negative /uL (Negative); Urine Clarity Clear (Clear); Urine Color Light-Yellow (Yellow); Urine Protein, UAD Negative (Negative); Urine Specific Gravity 1.012 (1.001-1.035); Urine Urobilinogen Normal (Negative); Urine WBC 1 /hpf (0 - 3); Urine pH 5.5 (5.0-9.0)
[2024-02-18] MEDS: FUROSEMIDE 40 MG/4 ML VIAL IV ONE (17:15)
[2024-02-18] MEDS: cloNIDine HCL 0.1 MG TAB PO ONE (18:28)
[2024-02-18 18:47] VITALS: PULSE 57; RESP 14; O2SAT 93
[2024-02-18 20:04] VITALS: PULSE 67; RESP 14; O2SAT 94
[2024-02-18] MEDS ORDERED: ACETAMINOPHEN 325 MG TAB PO PRN (21:00)
[2024-02-18] MEDS ORDERED: MORPHINE SULFATE INJ 2 MG/ml SYRG IV PRN ×2 (21:00)
[2024-02-18] MEDS: ENOXAPARIN SOD 40 MG/0.4 ML SYRINGE SC SCH (21:00)
[2024-02-18] MEDS ORDERED: NITROGLYCERIN 0.4 MG SL TAB SL PRN (21:00)
[2024-02-18] MEDS: SODIUM CHLOR 0.9% PF (SALINE LOCK) 10ML VIAL/SYR IV SCH (21:15)
[2024-02-18] MEDS: SODIUM CHLORIDE 0.9% 500 ML IV ONE ×2 (21:19→22:35)
[2024-02-18] MEDS ORDERED: LABETALOL HCL 20 MG/4 ML VL IV PRN (21:45)
--- NOTE | 2024-02-18 21:46 | DVHHPRES ---
History of Present Illness Resident Creating Document: SURJIT GUSMAN RESIDENT History of Present Illness YVON ESTRADA a 68 years old male with a PMH of HTN, vasospastic angina, CHF, CVA, HLD, MT presented to the ED with the chief complaints of elevated blood pressure on 2 occasions today. 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 currently patient reports some back pain. On my assessment patient denies chest pain, vomiting, abdominal pain, palpitations and other associated symptoms. Past Medical History CHF, CVA, High Lipids, HTN, Kidney Stones, MT, Past Surgical History Hernia repair, appendicectomy Family History Diabetes in mother, brother and throat cancer in brother Past Social History Lives at home alone. Denies smoking, alcohol and other drug abuse Review of Systems Constitutional: Yes: Weakness Eyes: No: Pain, Vision change, Conjunctivae inflammation, Eyelid inflammation, Other, Redness ENT: No: Ear pain, Ear discharge, Nose pain, Nose discharge, Nose congestion, Mouth pain, Mouth swelling, Throat pain, Throat swelling, Other Respiratory: No: Cough, Dry, Shortness of breath, SOB with excertion, Wheezing, Hemoptysis, Pleuritic Pain, Sputum, Wheezing, Other Cardiovascular: Other (Mild dizziness) Gastrointestinal: Nausea Genitourinary: No Dysuria, No Frequency, No Incontinence, No Hematuria, No Retention, No Other Musculoskeletal: hand pain Skin: No: Rash, Lesions, Jaundice, Bruising, Other Neurological: No: Weakness, Numbness, Incoordination, Change in speech, Confusion, Seizures, Other Allergies: Coded Allergies: Ibuprofen (Verified Allergy, Mild, 03/28/10) Medications Current Medications Medications Dose Ordered Sig/Patty Route Start Time Stop Time Status Last Admin Dose Admin Sodium Chloride 10 ml Q8HR IV 02/18/24 22:00 02/18/24 21:15 10 ML Acetaminophen 325 mg Q4HP PRN PO 02/18/24 21:00 Morphine Sulfate 2 mg Q4HPRN PRN IV 02/18/24 21:00 Enoxaparin Sodium 40 mg DAILY SC 02/18/24 21:00 Nitroglycerin 0.4 mg Q5MINP PRN SL 02/18/24 21:00 Morphine Sulfate 2 mg Q30M PRN IV 02/18/24 21:00 Labetalol HCl 10 mg Q2HPRN PRN IV 02/18/24 21:45 Exam Vital Signs Vital Signs Date Time Temp Pulse Resp B/P (MAP) Pulse Ox O2 Delivery O2 Flow Rate FiO2 02/18/24 21:05 56 02/18/24 20:04 14 94 Room Air* 0 21 02/18/24 19:47 133/87 02/18/24 15:53 98.7 Exam Pt is lying on bed General Appearance: Alert, Oriented X3, Cooperative, Not in acute distress HEENT: Atraumatic, Mucous membranes moist/pink Respiratory: Clear to auscultation, Normal air movement, No added sounds Cardiovascular: Regular rate, Normal S1, Normal S2, No murmurs Abdominal: Active bowel sounds, Soft, no distention, no tenderness Extremities: No edema, Normal pulses, No tenderness/swelling Skin: No Significant rash, except past surgical scars Neuro: Normal speech, sensorimotor deficits none Psych/Mental Status: Mental status NL, Mood NL Labs/Xrays Labs Test 02/18/24 16:02 02/18/24 15:58 Range/Units Urine Color Light-yellow Yellow Urine Clarity Clear Clear Urine pH 5.5 5.0-9.0 Urine Specific [place] 1.012 1.001-1.035 Urine Protein Negative Negative Urine Ketones Negative Negative Urine Blood Negative Negative /uL Urine Nitrite Negative Negative Urine Bilirubin Negative Negative Urine Urobilinogen Normal Negative mg/dL Urine Leukocyte Esterase Trace Negative /uL Urine RBC 1 0 - 3 /hpf Urine WBC 1 0 - 3 /hpf Urine Squamous Epithelial Cells None seen <5 /hpf Urine Bacteria None seen None Seen /hpf Urine Glucose Normal Normal mg/dL White Blood Count 6.5 4.4-10.8 10^3/uL Red Blood Count 5.08 4.5-5.90 10^6/uL Hemoglobin 14.5 13.5-17.5 g/dL Hematocrit 43.3 41.0-53.0 % Mean Corpuscular Volume 85.3 80.0-100.0 fL Mean Corpuscular Hemoglobin 28.5 28.0-32.0 pg Mean Corpuscular Hemoglobin Concent 33.5 32.0-36.0 g/dL Red Cell Distribution Width 14.1 11.8-14.3 % Platelet Count 255 140-450 10^3/uL Mean Platelet Volume 8.2 6.9-10.8 fL Neutrophils (%) (Auto) 49.1 37.0-80.0 % Lymphocytes (%) (Auto) 38.0 10.0-50.0 % Monocytes (%) (Auto) 8.4 0.0-12.0 % Eosinophils (%) (Auto) 4.1 0.0-7.0 % Basophils (%) (Auto) 0.4 0.0-2.0 % Neutrophils # (Auto) 3.2 1.6-8.6 10 ^3/uL Lymphocytes # (Auto) 2.5 0.4-5.4 10 ^3/uL Monocytes # (Auto) 0.5 0-1.3 10 ^3/uL Eosinophils # (Auto) 0.3 0-0.8 10 ^3/uL Basophils # (Auto) 0 0-0.2 10 ^3/uL Nucleated Red Blood Cells 0.3 % Sodium Level 138 136-145 mmol/L Potassium Level 4.2 3.5-5.1 mmol/L Chloride Level 105 98-107 mmol/L Carbon Dioxide Level 26 20-31 mmol/L Anion Gap 7 5-15 Blood Urea Nitrogen 12 9-23 mg/dL Creatinine 0.75 0.700-1.30 mg/dL Glomerular Filtration Rate Calc 100 >90 mL/min BUN/Creatinine Ratio 16.0 10.0-20.0 Serum Glucose 97 74-106 mg/dL Calcium Level 9.2 8.7-10.4 mg/dL Troponin I High Sensitivity < 3 L </=54 ng/L Assessment/Plan Assessment/Plan # hypertensive urgency -continuously monitor blood pressure -given clonidine 0.2 mg -currently on labetalol 10 mg prn -monitor lab -ordered echocardiogram and carotid Doppler # hyperlipidemia -continue home meds # carpal tunnel syndrome -continue home meds Lovenox for now Protonix Cardiac diet Reconciled home meds Goals of care discussed with the patient for more than 27 minutes: Full code status Case management discussed with Dr. Saenz, patient and nurse Plan discussed with: Patient My Orders Orders - SURJIT GUSMAN RESIDENT Procedure Category Date Status Time Admit ADMIT 02/18/24 Transmitted 20:52 Allergies JH 02/18/24 In Process 20:52 Code Status CODE 02/18/24 Transmitted 20:52 2 Gm Sodium Diet DIET 02/19/24 Transmitted Breakfast Sodium Chloride Lock PHA 02/18/24 In Process (Saline Lock Ns) 22:00 Echo 2d Mode Cardiac US 02/18/24 Logged DOP 20:52 Morphine Sulfate PHA 02/18/24 In Process Injection 21:00 Enoxaparin Sodium PHA 02/18/24 In Process (Lovenox) 21:00 Nitroglycerin PHA 02/18/24 In Process Sublingual (Ntrostat 21:00 Morphine Sulfate PHA 02/18/24 In Process Injection 21:00 Oxygen By Nasal RT 02/18/24 Transmitted Cannula 20:52 Stat Ekg For Chest JH 02/18/24 In Process Pain 20:52 Notify Of Changes JH 02/18/24 In Process From Base 20:52 Accounting Consultant For JH 02/18/24 In Process 24 Hours 20:52 Emergency Dysrhythmia JH 02/18/24 In Process Protocol 20:52 Rhythm Strips Once JH 02/18/24 In Process Every Shift 20:52 Acetaminophen Tablet PHA 02/18/24 In Process (Tylenol Tablet) 21:00 Cardiac DIET 02/19/24 Verified Diet-2gna,Lofat,Lochol Breakfast Complete Blood Count LAB 02/19/24 Verified 04:00 Comprehensive LAB 02/19/24 Verified Metabolic Panel 04:00 Comprehensive LAB 02/18/24 Logged Metabolic Panel 20:56 Complete Blood Count LAB 02/18/24 Logged 20:56 Drug Screen LAB 02/18/24 Logged 20:56 Thyroid Stimulating LAB 02/18/24 Logged Hormone 20:56 Sodium Chloride 0.9% PHA 02/18/24 In Process 21:15 Carotid Duplx W Color US 02/18/24 Logged DOP 21:40 Labetalol Hcl PHA 02/18/24 In Process (Labetalol Hcl) 21:45 B-Type Natriuretic LAB 02/18/24 Logged Peptide 21:42 Aspirin Enteric PHA 02/19/24 Transmitted Coated Tablet 10:00 Metoprolol Tartrate PHA 02/18/24 Transmitted Tablet (Lopressor Ta 22:00 (Nf) Gabapentin PHA 02/18/24 Transmitted 22:00 (Nf) Paroxetine PHA 02/19/24 Transmitted Hydrochloride 10:00 (Nf) Simvastatin PHA 02/19/24 Transmitted 10:00 Hemoglobin A1c LAB 02/18/24 Verified 21:44 PTPTT LAB 02/19/24 Verified 04:00 Vitamin D, 25-Hydroxy LAB 02/18/24 Verified 21:44 Vitamin B12 LAB 02/18/24 Verified 21:44 Thyroid Stimulating LAB 02/18/24 Verified Hormone 21:44 Date of Service: Feb 18, 2024 Billing Provider: SAHLIE SAENZ MD Common Visit Codes: 89003-HMDPQRK INP/OBS CARE (HIGH) Secondary Visit Codes: 58782-[id number] CARE PLAN 30 MINUTES NASEEMTABNINA RESIDENT Feb 18, 2024 21:46 ASHLIE SAENZ MD Feb 20, 2024 09:27
[2024-02-18] MEDS: METOPROLOL TARTRATE 50 MG TAB PO SCH (21:56)
[2024-02-18] MEDS: ATORVASTATIN 20 MG TAB PO SCH (22:00)
[2024-02-18] MEDS: GABAPENTIN 400 MG CAP PO SCH (22:00)
[2024-02-18 22:01] LABS: Basophils # (auto) 0 10 ^3/uL (0-0.2); Basophils % (auto) 0.3 % (0.0-2.0); Eosinophils # (auto) 0.2 10 ^3/uL (0-0.8); Eosinophils % (auto) 2.4 % (0.0-7.0); Hematocrit 42.9 % (41.0-53.0); Hemoglobin 14.6 g/dL (13.5-17.5); Lymphocytes # (auto) 2.4 10 ^3/uL (0.4-5.4); Mean Corpuscular Hemoglobin 28.9 pg (28.0-32.0); Mean Corpuscular Volume 85.1 fL (80.0-100.0); Monocytes # (auto) 0.6 10 ^3/uL (0-1.3); Monocytes % (auto) 6.4 % (0.0-12.0); Neutrophils # (auto) 5.6 10 ^3/uL (1.6-8.6); Neutrophils % (auto) 63.9 % (37.0-80.0); Nucleated Red Blood Cells % 0.1 %; Platelet Count (auto) 252 10^3/uL (140-450); Red Blood Cells 5.04 10^6/uL (4.5-5.90); Red Cell Distribution Width 14.1 % (11.8-14.3); White Blood Cell 8.7 10^3/uL (4.4-10.8)
[2024-02-18 22:17] LABS: Alanine Aminotransferase 10 U/L (7-40); Albumin 4.4 g/dL (3.2-4.8); Alkaline Phosphatase 51 U/L (46-116); Anion Gap 8 (5-15); Aspartate Aminotransferase 12 U/L (13-40); BUN/Creatinine Ratio 10.3 (10.0-20.0); Blood Urea Nitrogen 11 mg/dL (9-23); Calcium 9.4 mg/dL (8.7-10.4); Carbon Dioxide 29 mmol/L (20-31); Chloride 103 mmol/L (98-107); Glucose 141 mg/dL (74-106); Potassium 3.5 mmol/L (3.5-5.1); Sodium 140 mmol/L (136-145)
[2024-02-18 22:18] LABS: Bilirubin, Total 0.8 mg/dL (0.2-1.0); Total Protein 7.4 g/dL (5.7-8.2)
[2024-02-18 23:18] LABS: Amphetamine Screen, Urine Neg (NEGATIVE); Barbiturate Scree,Urine Neg (NEGATIVE); Benzodiazephine Screen, Urine Neg (NEGATIVE); Cannabinoid Screen, Urine Neg (NEGATIVE); Cocaine Screen, Urine Neg (NEGATIVE); Opiate Scree,Urine Neg (NEGATIVE); Phencyclidine Screen, Urine Neg (NEGATIVE)
[2024-02-19 06:14] LABS: Basophils # (auto) 0 10 ^3/uL (0-0.2); Basophils % (auto) 0.2 % (0.0-2.0); Eosinophils # (auto) 0.2 10 ^3/uL (0-0.8); Eosinophils % (auto) 2.9 % (0.0-7.0); Hematocrit 41.3 % (41.0-53.0); Hemoglobin 13.8 g/dL (13.5-17.5); Lymphocytes # (auto) 2.7 10 ^3/uL (0.4-5.4); Lymphocytes % (auto) 37.4 % (10.0-50.0); Mean Corpuscular Hemoglobin 28.9 pg (28.0-32.0); Mean Corpuscular Hgb Conc. 33.5 g/dL (32.0-36.0); Mean Corpuscular Volume 86.1 fL (80.0-100.0); Monocytes # (auto) 0.8 10 ^3/uL (0-1.3); Monocytes % (auto) 10.5 % (0.0-12.0); Neutrophils # (auto) 3.6 10 ^3/uL (1.6-8.6); Platelet Count (auto) 223 10^3/uL (140-450); White Blood Cell 7.3 10^3/uL (4.4-10.8)
[2024-02-19 06:24] LABS: INR 1.11 (0.9-1.15); Partial Thromboplastin Time 28.5 SEC (24.5-34.5); Prothrombin Time 11.7 sec (9.3-11.8)
[2024-02-19 06:30] LABS: Alkaline Phosphatase 48 U/L (46-116); Anion Gap 6 (5-15); BUN/Creatinine Ratio 14.3 (10.0-20.0); Blood Urea Nitrogen 14 mg/dL (9-23); Calcium 8.9 mg/dL (8.7-10.4); Carbon Dioxide 29 mmol/L (20-31); Chloride 107 mmol/L (98-107); Glucose 84 mg/dL (74-106); Potassium 4.3 mmol/L (3.5-5.1); Sodium 142 mmol/L (136-145)
[2024-02-19 06:31] LABS: Albumin 4.2 g/dL (3.2-4.8); Aspartate Aminotransferase 10 U/L (13-40); Bilirubin, Total 0.6 mg/dL (0.2-1.0); Total Protein 6.6 g/dL (5.7-8.2)
[2024-02-19 06:32] LABS: Alanine Aminotransferase < 9 U/L (7-40)
[2024-02-19 07:28] VITALS: PULSE 54; RESP 14; O2SAT 97
[2024-02-19 09:43] VITALS: BP 116/74; PULSE 57; RESP 18; TEMP 97.7; O2SAT 94
[2024-02-19] MEDS ORDERED: PATIENTS OWN MEDICATION (Paroxetine Hydrochloride 1 TAB) PO SCH (10:00)
[2024-02-19] MEDS ORDERED: PATIENTS OWN MEDICATION (Simvastatin 1 TAB) PO SCH (10:00)
[2024-02-19] MEDS: PARoxetine 20 MG TAB PO SCH (10:00)
[2024-02-19] MEDS ORDERED: TRAM50TA2 PO (10:25)
--- NOTE | 2024-02-19 10:26 | DVH ---
CAROTID ARTERIAL DOPPLER CLINICAL HISTORY: DIZZINESS TECHNIQUE: Doppler study of bilateral carotid/vertebral arteries were performed. Comparison: None FINDINGS: The bilateral common carotid, external and internal carotid arteries appear patent without hemodynami birdie significant stenosis. There is no significant flow limiting plaque formation identified.The sp ectral wave forms and peak systolic velocities are within normal limits. Antegrade flow is present within the vertebral arteries with appropriate velocities and waveforms. Right ICA/CCA PSV ratio = 1.0. Left ICA/CCA PSV ratio = 0.9 . IMPRESSION: 1. No hemodynamically significant stenosis within the carotid arteries. HS:Y
[2024-02-19] MEDS: ASPirin-EC 81 mg tab PO SCH (10:27)
--- NOTE | 2024-02-19 12:23 | ECG ---
[facility] Test Date: 2024-02-18 Test Time: 21:05:22 Pat Name: YVON ESTRADA Department: ER Room: [address] [place] [address] 1 Gender: M Booth Cashier: MIRTHA : 1955 Requested By: EMERALD GOLD Order Number: [id number] Reading MD: Braxton Hickey Measurements Intervals [place] Rate: 56 P: 21 WV: 202 QRS: -7 QRSD: 101 T: 27 QT: 465 QTc: 449 Interpretive Statements Sinus rhythm Low voltage, precordial leads RSR' in V1 or V2, right VCD or RVH Electronically Signed On 02-22-2024 11:15:12 PST by Braxton Hickey Please click the below link to view image of tracing.
--- NOTE | 2024-02-19 12:48 | DVHPNRES ---
Progress Note Date Seen: Feb 19, 2024 Resident Creating Document: YAHIR GARCIA RESIDENT Medical Necessity Reason Pt with a Central, PICC or Fol: No Subjective Review of Systems Patient is a 68-year-old male with past medical history of hypertension, vasospastic angina, CHF, CVA, dyslipidemia, VT, asthma and carpal tunnel syndrome, who came in due to hypertensive urgency/emergency. According to the patient, yesterday on 02/18/2024 he checked his blood pressure in the morning and it was 180/111 without any accompanying symptoms. Patient notes that later that day, he was at the pharmacy when he was experiencing fatigue along with gurmeet arias. Upon checking his blood pressure at the pharmacy was noted to be 192/152 accompanied with a stabbing back pain, patient was subsequently sent to the hospital from the pharmacy. Currently patient reports improved backache. Past surgical history: Hernia repair surgery, appendectomy Home medications: Aspirin, budesonide, gabapentin, metoprolol tartrate, paroxetine, simvastatin, tramadol Past Hospitalization: October 2023 for COVID pneumonia Social & Personal history: Patient lives alone denies using tobacco. Uses alcohol once in a while, last drink 1 week ago. Denies using any drugs. Allergies: Ibuprofen/Motrin Patient seen and examined at bedside. Patient is . However alert and oriented to time, place person and responding to all questions. General: Reports feeling fatigued, headache Eyes: No Pain, No Vision change, No Conjunctivae inflammation, No Eyelid inflammation, No Other, No Redness ENT: No Ear pain, No Ear discharge, No Nose pain, No Nose discharge, No Nose congestion, No Mouth pain, No Mouth swelling, No Throat pain, No Throat swelling, No Other Cardiovascular: No Chest Pain, No Palpitations, No Orthopnea, No Paroxysmal No Dyspnea, No Edema, No Lt Headedness, No Other Respiratory: No Cough, No Dry, No Shortness of breath, No SOB with exertion, No Wheezing, No Hemoptysis, No Pleuritic Pain, No Sputum, No Other Gastrointestinal: No Nausea, No Vomiting, No Abdominal Pain, No Diarrhea, C onstipation, No Melena, No Hematochezia, No Other Genitourinary: No Dysuria, No Frequency, No Incontinence, No Hematuria, No Retention, No Other Musculoskeletal: No other, No neck pain, No shoulder pain, No arm pain, No back pain, No hand pain, No leg pain, No foot pain Skin: No Rash, No Lesions, No Jaundice, No Bruising, No Other Objective vital signs Vital Sign Date Time Temp Pulse Resp B/P (MAP) Pulse Ox O2 Delivery O2 Flow Rate FiO2 02/19/24 10:26 65 106/71 02/19/24 09:43 97.7 18 94 97.7 02/19/24 09:12 Room Air* 0 21 Total Intake and Output 02/18/24 02/18/24 02/19/24 15:00 23:00 07:00 Intake Total 500 ml 500 ml Balance 500 ml 500 ml medications Current Medications Medications Dose Ordered Sig/Patty Route Start Time Stop Time Status Last Admin Dose Admin Sodium Chloride 10 ml Q8HR IV 02/18/24 22:00 02/19/24 05:47 10 ML Acetaminophen 325 mg Q4HP PRN PO 02/18/24 21:00 Morphine Sulfate 2 mg Q4HPRN PRN IV 02/18/24 21:00 Enoxaparin Sodium 40 mg DAILY SC 02/18/24 21:00 Nitroglycerin 0.4 mg Q5MINP PRN SL 02/18/24 21:00 Morphine Sulfate 2 mg Q30M PRN IV 02/18/24 21:00 Aspirin 81 mg DAILY PO 02/19/24 10:00 02/19/24 10:27 81 MG Metoprolol Tartrate 50 mg BID PO 02/18/24 22:00 02/19/24 10:26 50 MG Gabapentin 1,200 mg BID PO 02/18/24 22:00 02/19/24 10:23 1,200 MG Paroxetine HCl 10 mg DAILY PO 02/19/24 10:00 Atorvastatin Calcium 10 mg HS PO 02/18/24 22:00 Amlodipine Besylate 5 mg DAILY PO 02/20/24 10:00 Examination General Appearance: Cooperative. Well developed. Well nourished. NAD Head Exam: Normal inspection Neck Exam: Normal inspection. Non-tender. Normal alignment Pulmonary/Respiratory: Chest non-tender. Clear bilateral breath sounds, no crackles, no wheezing. Cardiovascular/Chest: Regular rate and rhythm. No murmurs. No JVD. Peripheral Pulses: 2+ Radial (R). 2+ Radial (L). 2+ Pedal (R). 2+ Pedal (L) Abdominal Exam: Normal bowel sounds. Soft. normal abdomen, no visible veins, Nontender. No hepatospenomegaly. No masses Ankle Exam: Negative ankle edema Lower extremities: 1+ lower extremity edema Neuro/Mental Status: A&O x4. Coherent. Thoughts/Psych: Normal thought pattern. Appropriate mood and affect. Good judgement and insight Skin Exam: Normal inspection. Normal color. Warm. Dry laboratory and microbiology Laboratory Tests 02/19/24 05:28 Test 02/19/24 05:28 Range/Units Serum Glucose 84 74-106 mg/dL Problem List/Assessment/Plan Problem List/Assessment/Plan Hypertensive urgency versus emergency Hypertensive heart disease - carotid doppler: No hemodynamically significant stenosis within the carotid arteries. - stopped metoprolol 50mg bid - amlodipine 5mg Dyslipidemia - aspirin, statin Peripheral neuropathy - gabapentin 600mg bid - tramadol 50mg q6hr as needed for moderate pain Depression, likely MDD - paroxetine 10mg DVT prophylaxis: Levonox 40mg Goals of care: Full code, discussed for >16 minutes on 02/19/24 Plan discussed with patient Plan discussed with Dr. Obando Plan discussed with: Patient, Other (RN) My Orders My Orders Orders - YAHIR GARCIA RESIDENT Procedure Category Date Status Time Amlodipine Tablet PHA 02/20/24 In Process (Norvasc Tablet) 10:00 Date of Service: Feb 19, 2024 Billing Provider: HEATHER OBANDO MD Common Visit Codes: [id number] INP/OBS CARE(HIGH) Comment I saw and evaluated the patient. I reviewed the residents note and agree with findings and plan as documented in the residents note. YAHIR GARCIA RESIDENT Feb 19, 2024 12:48 HEATHER OBANDO MD Feb 19, 2024 20:59
[2024-02-19 13:00] VITALS: BP 124/62; PULSE 57; RESP 18; TEMP 97.6; O2SAT 98
[2024-02-19] MEDS: amLODIPine BESYLATE 5 MG TAB PO ONE (14:48)
[2024-02-19 16:00] VITALS: BP 126/75; PULSE 65; RESP 18; TEMP 97.5; O2SAT 98
--- NOTE | 2024-02-19 16:46 | DVHSR ---
APPROVED REPORT EXAM: Two-dimensional and M-mode echocardiogram with Doppler and color Doppler. Blood Pressure: 106/71 mmHg INDICATION Hypertension RISK FACTORS Height: 69, Weight: 200 DIMENSIONS LVDd4.2 (3.8-5.7cm)LA (2D)4.5 (1.9-4.0cm)Aortic Root3.9 (2.0-3.7cm) LVDs2.7 (2.5-4.0cm)LA (MM) (1.9-4.0cm)Aortic Cusp Exc1.9 (1.5-2.0cm) EF (%) 65.0 (55-70%)Rt. Atrium4.8 (1.9-4.0cm)Asc. Aorta cm IVSd1.4 (0.7-1.1cm)RV (D) (1.8-2.4cm) PWd1.2 (0.7-1.1cm) Mitral Valve MitralMitral Stenosis E wave0.74m/sMV Mean GR.mmHg A wave0.75m/sMV Peak GR.mmHg E/A ratio1.02D MVAcm2 DECEL [id number] 1/2 [id number] IVRTmsDop MVA3.04cm2 Aortic Valve Aortic ValveAortic Stenosis V11.08m/Zheng Mean GR.4mmHg V21.58m/Zheng Peak GR.10mmHg LVOT Diameter2.2 (1.8-2.4cm)Doppler AVA2.60cm2 AI P 1/2 [id number] Pulmonic Valve V21.01m/s Tricuspid Valve TR Velocity2.32m/s [id number] Conclusion Normal left ventricular size and dimension. Normal left ventricular systolic function estimated ejec tion fraction 55%. There is a grade 1 diastolic dysfunction. Normal right ventricular size and dimension. Normal right ventricular systolic function. Normal biatrial size and dimension. There is mild aortic valve sclerosis. There is mild aortic valve regurgitation. Normal mitral valve structure function. Normal tricuspid valve structure and function. The pulmonary valve is grossly normal. No pericardial effusion.
[2024-02-19 21:00] VITALS: BP 115/72; PULSE 68; RESP 18; TEMP 98.2; O2SAT 94
[2024-02-19] MEDS: GABAPENTIN 300 MG CAP PO SCH (21:22)
[2024-02-19] MEDS: MELATONIN 5 MG TAB PO ONE (21:22)
[2024-02-19] MEDS: traMADol HCL 50 MG TAB PO PRN (22:20)
[2024-02-20] VITALS: BP 120/76; PULSE 72; RESP 18; O2SAT 95
[2024-02-20 05:00] VITALS: BP 125/71; PULSE 59; RESP 18; TEMP 97.8; O2SAT 96
[2024-02-20 08:00] VITALS: BP 157/77; PULSE 65; RESP 18; TEMP 98; O2SAT 100
[2024-02-20 09:00] VITALS: BP 154/75; PULSE 65; RESP 18; TEMP 98; O2SAT 100
[2024-02-20] MEDS: FAMOTIDINE 20 MG TAB PO SCH (09:17)
[2024-02-20] MEDS: amLODIPine BESYLATE 5 MG TAB PO SCH (09:18)
[2024-02-20] MEDS ORDERED: AMLO1TAB22 PO (10:53)
[2024-02-20 13:00] VITALS: BP 128/85; PULSE 75; RESP 19; TEMP 98; O2SAT 94
--- NOTE | 2024-02-20 14:05 | DVHDSRES ---
Discharge Summary Date of Admission Resident Creating Document: YAHIR GARCIA RESIDENT Feb 18, 2024 at 20:52 Date of Discharge: Feb 20, 2024 Labs/Diagnostic Data: Laboratory Results Test 02/19/24 05:28 02/18/24 21:40 02/18/24 16:02 02/18/24 15:58 White Blood Count 7.3 10^3/uL (4.4-10.8) Red Blood Count 4.80 10^6/uL (4.5-5.90) Hemoglobin 13.8 g/dL (13.5-17.5) Hematocrit 41.3 % (41.0-53.0) Mean Corpuscular Volume 86.1 fL (80.0-100.0) Mean Corpuscular Hemoglobin 28.9 pg (28.0-32.0) Mean Corpuscular Hemoglobin Concent 33.5 g/dL (32.0-36.0) Red Cell Distribution Width 14.0 % (11.8-14.3) Platelet Count 223 10^3/uL (140-450) Mean Platelet Volume 8.4 fL (6.9-10.8) Neutrophils (%) (Auto) 49.0 % (37.0-80.0) Lymphocytes (%) (Auto) 37.4 % (10.0-50.0) Monocytes (%) (Auto) 10.5 % (0.0-12.0) Eosinophils (%) (Auto) 2.9 % (0.0-7.0) Basophils (%) (Auto) 0.2 % (0.0-2.0) Neutrophils # (Auto) 3.6 10 ^3/uL (1.6-8.6) Lymphocytes # (Auto) 2.7 10 ^3/uL (0.4-5.4) Monocytes # (Auto) 0.8 10 ^3/uL (0-1.3) Eosinophils # (Auto) 0.2 10 ^3/uL (0-0.8) Basophils # (Auto) 0 10 ^3/uL (0-0.2) Nucleated Red Blood Cells 0.0 % Prothrombin Time 11.7 sec (9.3-11.8) Prothrombin Time INR 1.11 (0.9-1.15) Activated Partial Thromboplast Time 28.5 SEC (24.5-34.5) Sodium Level 142 mmol/L (136-145) Potassium Level 4.3 mmol/L (3.5-5.1) Chloride Level 107 mmol/L (98-107) Carbon Dioxide Level 29 mmol/L (20-31) Anion Gap 6 (5-15) Blood Urea Nitrogen 14 mg/dL (9-23) Creatinine 0.98 mg/dL (0.700-1.30) Glomerular Filtration Rate Calc 85 mL/min (>90) BUN/Creatinine Ratio 14.3 (10.0-20.0) Serum Glucose 84 mg/dL (74-106) Calcium Level 8.9 mg/dL (8.7-10.4) Total Bilirubin 0.6 mg/dL (0.2-1.0) Aspartate Amino Transferase (AST) 10 U/L (13-40) Alanine Aminotransferase (ALT) < 9 U/L (7-40) Alkaline Phosphatase 48 U/L (46-116) Total Protein 6.6 g/dL (5.7-8.2) Albumin 4.2 g/dL (3.2-4.8) Hemoglobin A1c 5.3 % A1C (<5.7) B-Type Natriuretic Peptide 11.47 pg/mL (0-100) Vitamin B12 Level 276 pg/mL (211-911) Vitamin D 25-Hydroxy 30.1 ng/mL (30.0-100) Thyroid Stimulating Hormone (TSH) 7.90 uIU/mL (0.55-4.78) Urine Color Light-yellow (Yellow) Urine Clarity Clear (Clear) Urine pH 5.5 (5.0-9.0) Urine Specific [place] 1.012 (1.001-1.035) Urine Protein Negative (Negative) Urine Ketones Negative (Negative) Urine Blood Negative /uL (Negative) Urine Nitrite Negative (Negative) Urine Bilirubin Negative (Negative) Urine Urobilinogen Normal mg/dL (Negative) Urine Leukocyte Esterase Trace /uL (Negative) Urine RBC 1 /hpf (0 - 3) Urine WBC 1 /hpf (0 - 3) Urine Squamous Epithelial Cells None seen /hpf (<5) Urine Bacteria None seen /hpf (None Seen) Urine Glucose Normal mg/dL (Normal) Urine Opiates Screen Neg (NEGATIVE) Urine Fentanyl Screen Neg (NEGATIVE) Urine Barbiturates Screen Neg (NEGATIVE) Urine Phencyclidine Screen Neg (NEGATIVE) Urine Amphetamines Screen Neg (NEGATIVE) Urine Benzodiazepines Screen Neg (NEGATIVE) Urine Cocaine Screen Neg (NEGATIVE) Urine Cannabinoids Screen Neg (NEGATIVE) Troponin I High Sensitivity < 3 ng/L (</=54) Other Laboratory Tests 02/19/24 05:28 Brief Hx & Hospital Course: Patient is a 68-year-old male with past medical history of hypertension, vasospastic angina, CHF, CVA, dyslipidemia, DC, asthma and carpal tunnel syndrome, who came in due to hypertensive urgency/emergency. According to the patient, yesterday on 02/18/2024 he checked his blood pressure in the morning and it was 180/111 without any accompanying symptoms. Patient notes that later that day, he was at the pharmacy when he was experiencing fatigue along with b ackache. Upon checking his blood pressure at the pharmacy was noted to be 192/152 accompanied with a stabbing back pain, patient was subsequently sent to the hospital from the pharmacy. Currently patient reports improved backache. Hospital course: Carotid Doppler showed no hemodynamically significant stenosis within the carotid arteries. Echocardiogram showed normal left ventricular size and dimension, normal left ventricular systolic function, EF 55% with grade 1 diastolic dysfunction. Metoprolol home medication was discontinued and patient was started on amlodipine 5 mg daily. Aspirin and statin were continued along with home medications gabapentin 600 mg b.i.d. and tramadol 50 mg q.6 hours as needed for moderate pain. Home medication paroxetine 10 mg was also continued. On the day of discharge, patient appeared well denied any active pain and had stable vital signs. Patient was prescribed amlodipine 5 mg to take at home along with the instructions to record twice daily blood pressure measurements and take the measurements to his primary care doctor. Patient reported he is able to arrange appointment with his primary doctor within 1-2 weeks. Patient was also instructed that if after 1 week, his blood pressure continues to stay upwards of 150 then take 2 tablets of amlodipine daily until primary care physician has been seen. Patient demonstrated understanding. Patient was also scheduled for discharge clinic for follow up. His hospital course was uncomplicated. General Appearance: Cooperative. Well developed. Well nourished. NAD Head Exam: Normal inspection Neck Exam: Normal inspection. Non-tender. Normal alignment Pulmonary/Respiratory: Chest non-tender. Clear bilateral breath sounds, no crackles, no wheezing. Cardiovascular/Chest: Regular rate and rhythm. No murmurs. No JVD. Peripheral Pulses: 2+ Radial (R). 2+ Radial (L). 2+ Pedal (R). 2+ Pedal (L) Abdominal Exam: Normal bowel sounds. Soft. normal abdomen, no visible veins, Nontender. No hepatospenomegaly. No masses Ankle Exam: Negative ankle edema Lower extremities: 1+ lower extremity edema Neuro/Mental Status: A&O x4. Coherent. Thoughts/Psych: Normal thought pattern. Appropriate mood and affect. Good judgement and insight Skin Exam: Normal inspection. Normal color. Warm. Dry Operations or Procedures CAROTID ARTERIAL DOPPLER CLINICAL HISTORY: DIZZINESS TECHNIQUE: Doppler study of bilateral carotid/vertebral arteries were performed. Comparison: None FINDINGS: The bilateral common carotid, external and internal carotid arteries appear patent without hemodynamically significant stenosis. There is no significant flow limiting plaque formation identified.The spectral wave forms and peak systolic velocities are within normal limits. Antegrade flow is present within the vertebral arteries with appropriate velocities and waveforms. Right ICA/CCA PSV ratio = 1.0. Left ICA/CCA PSV ratio = 0.9 . IMPRESSION: 1. No hemodynamically significant stenosis within the carotid arteries. EXAM: Two-dimensional and M-mode echocardiogram with Doppler and color Doppler. Blood Pressure: 106/71 mmHg INDICATION Hypertension RISK FACTORS Height: 69, Weight: 200 DIMENSIONS LVDd 4.2 (3.8-5.7cm) LA (2D) 4.5 (1.9-4.0cm) Aortic Root 3.9 (2.0- 3.7cm) LVDs 2.7 (2.5-4.0cm) LA (MM) (1.9-4.0cm) Aortic Cusp Exc 1.9 (1.5- 2.0cm) EF (%) 65.0 (55-70%) Rt. Atrium 4.8 (1.9-4.0cm) Asc. Aorta cm IVSd 1.4 (0.7-1.1cm) RV (D) (1.8-2.4cm) PWd 1.2 (0.7-1.1cm) Mitral Valve Mitral Mitral Stenosis E wave 0.74m/s MV Mean GR. mmHg A wave 0.75m/s MV Peak GR. mmHg E/A ratio 1.0 2D MVA cm2 DECEL Time 248ms PRESS 1/2 Time 72ms IVRT ms Dop MVA 3.04cm2 Aortic Valve Aortic Valve Aortic Stenosis V1 1.08m/s AO Mean GR. 4mmHg V2 1.58m/s AO Peak GR. 10mmHg LVOT Diameter 2.2 (1.8-2.4cm) Doppler LEAH 2.60cm2 AI P 1/2 Time 723.00ms Pulmonic Valve V2 1.01m/s Tricuspid Valve TR Velocity 2.32m/s RVSP 25mmHg Conclusion Normal left ventricular size and dimension. Normal left ventricular systolic function estimated ejection fraction 55%. There is a grade 1 diastolic dysfunction. Normal right ventricular size and dimension. Normal right ventricular systolic function. Normal biatrial size and dimension. There is mild aortic valve sclerosis. There is mild aortic valve regurgitation. Normal mitral valve structure function. Normal tricuspid valve structure and function. The pulmonary valve is grossly normal. No pericardial effusion. Condition at Discharge: Good Final Diagnosis/Problems List Hypertensive urgency versus emergency Hypertensive heart disease Dyslipidemia Peripheral neuropathy Depression, likely MDD Discharge Disposition: Home Discharge Instruct/Medications Diet: Cardiac 2g Na,low cholest Activity: No Restrictions, As Tolerated Follow Up/Referral: Please follow up with PCP in 1-2 weeks Please follow up in the discharge clinic in 1-2 weeks Medications: Amlodipine 5 mg daily If systolic blood pressure (upper number) is consistently above 150 after 1 week of taking the medication, then take 2 pills daily starting 2nd week. Discharge Statement: "Patient was advised to return to the ER or call 911 if any headaches, dizziness, shortness of breath, chest pain, abdominal pain, bleeding, fevers, or worsening of medical condition. Patient was counseled about treatment plan, medications, possible side effects, patientverbalized understanding. All questions were answered to the best of my ability. This discharge took greater then 30 minutes in planning, reviewing documentation, counseling the patient, and discussing with other team members." ASSESSMENT ASSESSMENT Assessment Hypertensive urgency versus emergency Hypertensive heart disease Dyslipidemia Peripheral neuropathy Depression, likely MDD Date of Service: Feb 20, 2024 Billing Provider: HEATHER OBANDO MD Common Visit Codes: [id number] DISCH DAY >30min Coding Comment Comment I saw and evaluated the patient. I reviewed the residents note and agree with findings and plan as documented in the residents note. YAHIR GARCIA RESIDENT Feb 20, 2024 14:05 HEATHER OBANDO MD Feb 20, 2024 20:41
== END 2024-02-20 15:32 | disposition home or self-care (01) | DRG 199 ==
LOC: EDBD 15:45 → ER 15:45 → EDUNIT# 15:45 → OVERFLOW 20:52 → EAST 02-19 08:33
PROVIDERS: ADMIT Student in an Organized Health Care Education/Training Program; ATTEND Student in an Organized Health Care Education/Training Program
DX: I16.1 Hypertensive emergency (principal); I50.33 Acute on chronic diastolic (congestive) heart failure; E78.5 Hyperlipidemia, unspecified; I11.0 Hypertensive heart disease with heart failure; G62.9 Polyneuropathy, unspecified; F32.9 Major depressive disorder, single episode, unspecified; Z87.442 Personal history of urinary calculi; Z86.73 Personal history of transient ischemic attack (TIA), and cerebral infarction without residual deficits; Z79.899 Other long term (current) drug therapy; G56.00 Carpal tunnel syndrome, unspecified upper limb; I16.0 Hypertensive urgency
CPT/HCPCS: 36415; 71045; 80048; 80053; 80307; 81001; 82306; 82607; 83036; 83880; 84443; 84484; 85025; 85610; 85730; 93005; 93306; 93886; 99291; G0378